=== PATIENT | male | born 1955 | race Caucasian/White ===

== ENCOUNTER 2019-12-27 00:36 | Inpatient (IN) | payer OTHER, MEDICARE, SELFPAY ==
[2019-12-27] VITALS (51 sets, daily range): BP systolic 77–222; BP diastolic 59–124; PULSE 59–98; RESP 3–33; TEMP 36.4–37.3; O2SAT 79–99; BMI 30.9
--- NOTE | 2019-12-27 00:48 | ECG_ITS ---
[facility] Test Date: 2019-12-27 Pat Name: Kenji Kaur Department: Room: Gender: Male Financial Cost Analyst: : 1955 Requested By: Manolo Pacheco Order Number: [id number] Lalit MD: Asa Graves M.D. Measurements Intervals [place] Rate: 61 P: AL: -1 QRS: 7 QRSD: 106 T: 42 QT: 439 QTc: 446 Interpretive Statements ATRIAL FIBRILLATION SEPTAL MYOCARDIAL INFARCTION , OF INDETERMINATE AGE [40+ ms Q WAVE IN V1/V2] No previous ECG available for comparison Electronically Signed On 12-27-2019 19:21:05 CDT by Asa Graves M.D. [id number]
--- NOTE | 2019-12-27 00:48 | XR_ITS ---
WS: [id number] EXAM: AP CHEST: PORTABLE UPRIGHT DATE OF EXAM: 12/27/2019, 0129 hours COMPARISON: Chest x-ray from 04/11/2019 HISTORY: Patient is 64 years old with hypertension. History of prostate cancer. Complaining of shortness of br eath. FINDINGS: The cardiac silhouette is normal in size. The mediastinal contours are similar. Calcified plaque i n the aorta. This suggests hypertension.. The pulmonary vascularity is normal. The lungs are clear of infiltrate. There is no effusion or pneumothorax. No acute bony abnormality is seen. XR/XR chest 1V portable [id number] IMPRESSION: No acute pulmonary disease.
--- NOTE | 2019-12-27 00:51 | PC.NURSE ---
EKG done at 0050 and shown to ER doctor
[2019-12-27 01:24] LABS: Basophils # 0.1 10^3/uL (0.0-0.1); Basophils % 0.6 %; Eosinophils # 0.2 10^3/uL (0.0-0.8); Eosinophils % 1.4 %; Hematocrit 46.1 % (42.0-52.0); Hemoglobin 14.8 g/dL (11.7-16.6); Lymphocytes # 4.4 10^3/uL (0.8-4.8); Lymphocytes % 28.4 %; Mean Corpuscular HGB Conc 32.1 g/dL (30.0-36.0); Mean Corpuscular Hemoglobin 28.1 pg (28.0-34.0); Mean Corpuscular Volume 87.5 fL (80-94); Mean Platelet Volume 10.7 fL (7.4-10.4); Monocytes % 6.1 %; Neutrophils # 9.74 10^3/uL (1.8-7.7); Neutrophils % 62.6 %; Nucleated Red Blood Cells % 0 %; Platelet Count 280 10^3/cmm (130-400); Red Blood Count 5.27 10^6/uL (4.1-5.3); Red Cell Distribution Width 13.6 % (12.1-15.1); White Blood Count 15.6 10^3/uL (4.0-10.0)
[2019-12-27 01:29] LABS: INR 0.97 (0.8-1.2)
[2019-12-27 01:30] LABS: Partial Thromboplastin Time 33.8 SECONDS (23.9-36.7)
[2019-12-27 01:38] LABS: Troponin(5th) Baseline 10 ng/L (0-15)
--- NOTE | 2019-12-27 01:43 | PC.NURSE ---
patient c/o inability to uriante, 16 Fr Foely placed on arrival 1600mL out, clamped at 1000ml to avoid bladder spasm then let rest out
[2019-12-27 01:46] LABS: Alanine Aminotransferase 29 U/L (0-41); Albumin Level 4.2 g/dL (3.5-5.2); Alkaline Phosphatase 100 IU/L (40-130); Aspartate Amino Transferase 21 U/L (0-40); Blood Urea Nitrogen 13 mg/dL (8-23); Calcium 8.7 mg/dL (8.5-10.5); Carbon Dioxide 22 mmol/L (22-29); Chloride 103 mmol/L (98-107); Creatine Phosphokinase 86 U/L (39-308); Globulin 3.3 g/dL (1.3-4.6); Glomerular Filtration Rate 112.8 mL/min (90-130); Glucose 201 mg/dL (65-115); NT Pro B Type Natriuretic Pept 106 pg/mL (0-125); Osmolality Calculated 288 mOsm/kg (285-295); Sodium 138 mmol/L (136-145); Total Bilirubin 0.2 mg/dL (0.15-1.2); Total Protein 7.5 g/dL (6.6-8.7)
[2019-12-27] MEDS: enalaprilat 1.25 mg/mL Inj IVP (01:46)
[2019-12-27] MEDS: nitroglycerin 1 gm/inch oint Pkt 2 INCH TOPICAL (01:46)
[2019-12-27 01:47] LABS: Anion Gap 16.7 (5-19); Potassium 3.7 mmol/L (3.5-5.1)
[2019-12-27 01:54] LABS: Add Urine Microscopic? YES; Bilirubin Urine Neg (NEGATIVE); Blood Urine 2+ (Negative); Glucose Urine UA 1+ (Normal); Ketones Urine Negative (Negative); Leukocyte Esterase Urine Negative (Negative); Nitrate Urine Negative (Negative); Protein Urine 2+ (Negative); Urine Appearance Clear (CLEAR); Urine Color Straw (Yellow); Urobilinogen Urine Norm (Negative); pH Urine 8 (5-7)
[2019-12-27 01:55] LABS: Sulfosalicylic Acid Urine Positive (Negative)
[2019-12-27 01:56] LABS: Add Urine Culture? No; Bacteria Urine TRACE; RBC Urine 0-4 /hpf (0-2); Squamous Epithelial Cell Urine 0-4 (0-5); WBC Urine 0-4 /hpf (0-5)
--- NOTE | 2019-12-27 02:11 | W.ED.ARRPALP ---
HPI - Arrhythmia/Palpitations General: Chief Complaint: Arrhythmia/Palpitations Stated Complaint: NEW ONSET AFIB Time Seen by Provider: 12/27/19 00:42 History of Present Illness: HPI narrative: 64-year-old male presents from home. EMS was called for palpitations, acute onset of nausea, diaphoresis, and dizziness. There was mild chest discomfort involved as well. The patient's had a slight cough with some sputum production. No fever. Duration: intermittent Severity: moderate Associated symptoms: Deny anxiety, nausea or vomiting Review of Systems Const: Denies: fever(s) or chills Eyes: Denies: change in vision or blurry vision ENMT: Denies: swelling of lips/tongue, change in hearing, epistaxis or sinus pain Card: Reports: chest pain, palpitations, irregular heart rhythm and dyspnea on exertion Resp: Reports: dyspnea and productive cough; Denies: wheezing GI: Denies: abdominal pain, nausea, vomiting, hematochezia or melena : Reports: difficulty urinating and urinary urgency; Denies: dysuria, urinary frequency or hematuria Musc: Denies: neck pain, back pain, joint redness or joint warmth Skin/Breast: Denies: rash, pruritus or erythema Neuro: Denies: headache(s), dizziness, vertigo, confusion or seizure-like activity Psych: Denies: anxiety, visual hallucinations or auditory hallucinations [facility] ED PFSH: Medical History (Updated 12/27/19 @ 05:22 by Manolo Zarate DO) Amputation leg, bilat Bitten by shark Coronary artery disease Hypertension Peripheral vascular disease Aorto femoral bypass on left Femorofemoral bypass on the right Surgical History (Updated 12/27/19 @ 04:37 by Radha Nelson MD) H/O aorto-femoral bypass Stented coronary artery Family History (Updated 12/27/19 @ 04:37 by Radha Nelson MD) Other CAD (coronary artery disease) Hypertension Social History (Updated 12/27/19 @ 04:39 by Radha Nelson MD) Smoking and tobacco status: current every day smoker Substance/Drug Use: never Physical Exam Const: GENERAL APPEARANCE: ill appearing ORIENTATION/CONSCIOUSNESS: Yes oriented to person, Yes oriented to place and Yes oriented to time HENMT: COMMON NORMALS: normocephalic, external ears normal and Normal external nose present HEAD & SCALP: normocephalic FACE & SINUS: normal facial exam NOSE: Normal external nose present; nasal discharge EXTERNAL EAR: Yes external ears normal Eye: COMMON NORMALS: Equal, round and reactive pupils present, EOMs intact bilaterally and conjunctivae normal EYELID: eyelids normal CONJUNCTIVA: Yes conjunctivae normal PUPIL: Yes Equal, round and reactive pupils present Neck/C-Spine: COMMON NORMALS: full ROM GENERAL: No tracheal deviation CERVICAL SPINE: Yes normal cervical lordosis and No Cervical spine tenderness Chest: COMMONS NORMALS: normal inspection of the chest CHEST: No tenderness Resp: COMMON NORMALS: clear to auscultation bilaterally EFFORT & INSPECTION: No tachypneic, No respiratory distress, No retractions, No uses accessory muscles and No tracheal deviation AUSCULTATION: clear to auscultation bilaterally, no rhonchi, no wheezes and lung sounds not diminished Cardio: COMMON NORMALS: regular rate RATE: regular rate RHYTHM: abnormal rhythm irregularly irregular HEART SOUNDS: no murmurs PERIPHERAL PULSES: radial pulses present GI: INSPECTION: No abdominal distension AUSCULTATION: No Hyperactive bowel sounds present and No Hypoactive bowel sounds present PALPATION: No Guarding due to palpation present (GI) and No Rigid due to palpation PERCUSSION: no dullness to percussion and no tympanic to percussion Neuro: SENSORIUM/ORIENTATION: Yes oriented to person, Yes oriented to place and Yes oriented to time Psych: COMMON NORMALS: mental status grossly normal Skin: COMMON NORMALS: no rashes or lesions noted GENERAL SKIN EXAM: no rashes or lesions noted Course Vital Signs: Vital signs: Vital Signs Temperature 97.6 F 12/27/19 00:42 Pulse Rate 64 12/27/19 04:43 Respiratory Rate 16 12/27/19 04:43 Blood Pressure 166/75 12/27/19 04:43 Pulse Oximetry 98 12/27/19 04:43 MDM - Arrhythmia/Palpitations MDM Narrative: Medical decision making narrative: 64-year-old male presents hypertensive, and a new onset atrial fibrillation by history, with a white blood cell count of 15. Troponin was not positive. He has a cough with some sputum production. Chest x-ray is essentially negative. CT angios of the chest is pending. He is hypoxic. Lab Data: Labs: Lab Results 12/27/19 12/27/19 12/27/19 Range/Units 01:06 01:06 01:06 WBC 15.6 H (4.0-10.0) 10^3/ uL RBC 5.27 (4.1-5.3) 10^6/u L Hgb 14.8 (11.7-16.6) g/dL Hct 46.1 (42.0-52.0) % MCV 87.5 (80-94) fL MCH 28.1 (28.0-34.0) pg MCHC 32.1 (30.0-36.0) g/dL RDW 13.6 (12.1-15.1) % Plt Count 280 (130-400) 10^3/c mm MPV 10.7 H (7.4-10.4) fL Neut % (Auto) 62.6 % Lymph % (Auto) 28.4 % [place] % (Auto) 6.1 % Eos % (Auto) 1.4 % Baso % (Auto) 0.6 % Neut # (Auto) 9.74 H (1.8-7.7) 10^3/u L Lymph # (Auto) 4.4 (0.8-4.8) 10^3/u L [place] # (Auto) 1.0 H (0.2-0.9) 10^3/u L Eos # (Auto) 0.2 (0.0-0.8) 10^3/u L Baso # (Auto) 0.1 (0.0-0.1) 10^3/u L Nucleated RBC % (a uto) 0 % Nucleated RBCs # 0.0 /100WBC PT 13.20 (12.1-14.9) SECO NDS INR 0.97 (0.8-1.2) APTT 33.8 (23.9-36.7) SECO NDS Sodium 138 (136-145) mmol/L Potassium 3.7 (3.5-5.1) mmol/L Chloride 103 (98-107) mmol/L Carbon Dioxide 22 (22-29) mmol/L Anion Gap 16.7 (5-19) BUN 13 (8-23) mg/dL Creatinine 0.7 (0.7-1.2) mg/dL GFR Calculation 112.8 (90-130) mL/min Glucose 201 H (65-115) mg/dL Calculated Osmolal ity 288 (285-295) mOsm/k g Calcium 8.7 (8.5-10.5) mg/dL Total Bilirubin 0.2 (0.15-1.2) mg/dL AST 21 (0-40) U/L ALT 29 (0-41) U/L Alkaline Phosphata se 100 (40-130) IU/L Creatine Kinase 86 (39-308) U/L Troponin T Baselin e (0-15) ng/L Troponin T 120 Min pilot point (0-15) ng/L Delta Troponin T (0-10) ABS# NT-Pro-B Natriuret Pep 106 (0-125) pg/mL Total Protein 7.5 (6.6-8.7) g/dL Albumin 4.2 (3.5-5.2) g/dL Globulin 3.3 (1.3-4.6) g/dL Urine Color (Yellow) Urine Appearance (CLEAR) Urine pH (5-7) Ur Specific Gravit y (1.005-1.030) Urine Protein (Negative) Urine Glucose (UA) (Normal) Urine Ketones (Negative) Urine Blood (Negative) Urine Nitrate (Negative) Urine Bilirubin (NEGATIVE) Prot Sulfosalicyli c Acd (Negative) Urine Urobilinogen (Negative) mg/dL Ur Leukocyte Kimberly ase (Negative) Urine RBC (0-2) /hpf Urine WBC (0-5) /hpf Ur Squamous Epith Cells (0-5) Amorphous Sediment Urine Bacteria (NONE) Urine Opiates Scre en (Negative) ng/mL Ur Barbiturates Sc reen (Negative) ng/mL Ur Phencyclidine S crn (Negative) ng/mL Ur Amphetamines Sc reen (Negative) ng/mL U Benzodiazepines Scrn (Negative) ng/mL Urine Cocaine Scre en (Negative) ng/mL U Marijuana (THC) Screen (Negative) ng/mL 12/27/19 12/27/19 12/27/19 Range/Units 01:06 01:20 01:20 WBC (4.0-10.0) 10^3/ uL RBC (4.1-5.3) 10^6/u L Hgb (11.7-16.6) g/dL Hct (42.0-52.0) % MCV (80-94) fL MCH (28.0-34.0) pg MCHC (30.0-36.0) g/dL RDW (12.1-15.1) % Plt Count (130-400) 10^3/c mm MPV (7.4-10.4) fL Neut % (Auto) % Lymph % (Auto) % [place] % (Auto) % Eos % (Auto) % Baso % (Auto) % Neut # (Auto) (1.8-7.7) 10^3/u L Lymph # (Auto) (0.8-4.8) 10^3/u L [place] # (Auto) (0.2-0.9) 10^3/u L Eos # (Auto) (0.0-0.8) 10^3/u L Baso # (Auto) (0.0-0.1) 10^3/u L Nucleated RBC % (a uto) % Nucleated RBCs # /100WBC PT (12.1-14.9) SECO NDS INR (0.8-1.2) APTT (23.9-36.7) SECO NDS Sodium (136-145) mmol/L Potassium (3.5-5.1) mmol/L Chloride (98-107) mmol/L Carbon Dioxide (22-29) mmol/L Anion Gap (5-19) BUN (8-23) mg/dL Creatinine (0.7-1.2) mg/dL GFR Calculation (90-130) mL/min Glucose (65-115) mg/dL Calculated Osmolal ity (285-295) mOsm/k g Calcium (8.5-10.5) mg/dL Total Bilirubin (0.15-1.2) mg/dL AST (0-40) U/L ALT (0-41) U/L Alkaline Phosphata se (40-130) IU/L Creatine Kinase (39-308) U/L Troponin T Baselin e 10 (0-15) ng/L Troponin T 120 Min pilot point (0-15) ng/L Delta Troponin T (0-10) ABS# NT-Pro-B Natriuret Pep (0-125) pg/mL Total Protein (6.6-8.7) g/dL Albumin (3.5-5.2) g/dL Globulin (1.3-4.6) g/dL Urine Color Straw (Yellow) Urine Appearance Clear (CLEAR) Urine pH 8 H (5-7) Ur Specific Gravit y 1.010 (1.005-1.030) Urine Protein 2+ H (Negative) Urine Glucose (UA) 1+ (Normal) Urine Ketones Negative (Negative) Urine Blood 2+ H (Negative) Urine Nitrate Negative (Negative) Urine Bilirubin Neg (NEGATIVE) Prot Sulfosalicyli c Acd Positive (Negative) Urine Urobilinogen Norm (Negative) mg/dL Ur Leukocyte Kimberly ase Negative (Negative) Urine RBC 0-4 H (0-2) /hpf Urine WBC 0-4 H (0-5) /hpf Ur Squamous Epith Cells 0-4 H (0-5) Amorphous Sediment Not Reportable Urine Bacteria Trace (NONE) Urine Opiates Scre en Negative (Negative) ng/mL Ur Barbiturates Sc reen Negative (Negative) ng/mL Ur Phencyclidine S crn Negative (Negative) ng/mL Ur Amphetamines Sc reen Negative (Negative) ng/mL U Benzodiazepines Scrn Negative (Negative) ng/mL Urine Cocaine Scre en Negative (Negative) ng/mL U Marijuana (THC) Screen Positive H (Negative) ng/mL 12/27/19 Range/Units 02:57 WBC (4.0-10.0) 10^3/ uL RBC (4.1-5.3) 10^6/u L Hgb (11.7-16.6) g/dL Hct (42.0-52.0) % MCV (80-94) fL MCH (28.0-34.0) pg MCHC (30.0-36.0) g/dL RDW (12.1-15.1) % Plt Count (130-400) 10^3/c mm MPV (7.4-10.4) fL Neut % (Auto) % Lymph % (Auto) % [place] % (Auto) % Eos % (Auto) % Baso % (Auto) % Neut # (Auto) (1.8-7.7) 10^3/u L Lymph # (Auto) (0.8-4.8) 10^3/u L [place] # (Auto) (0.2-0.9) 10^3/u L Eos # (Auto) (0.0-0.8) 10^3/u L Baso # (Auto) (0.0-0.1) 10^3/u L Nucleated RBC % (a uto) % Nucleated RBCs # /100WBC PT (12.1-14.9) SECO NDS INR (0.8-1.2) APTT (23.9-36.7) SECO NDS Sodium (136-145) mmol/L Potassium (3.5-5.1) mmol/L Chloride (98-107) mmol/L Carbon Dioxide (22-29) mmol/L Anion Gap (5-19) BUN (8-23) mg/dL Creatinine (0.7-1.2) mg/dL GFR Calculation (90-130) mL/min Glucose (65-115) mg/dL Calculated Osmolal ity (285-295) mOsm/k g Calcium (8.5-10.5) mg/dL Total Bilirubin (0.15-1.2) mg/dL AST (0-40) U/L ALT (0-41) U/L Alkaline Phosphata se (40-130) IU/L Creatine Kinase (39-308) U/L Troponin T Baselin e (0-15) ng/L Troponin T 120 Min pilot point 10.22 (0-15) ng/L Delta Troponin T 0.22 (0-10) ABS# NT-Pro-B Natriuret Pep (0-125) pg/mL Total Protein (6.6-8.7) g/dL Albumin (3.5-5.2) g/dL Globulin (1.3-4.6) g/dL Urine Color (Yellow) Urine Appearance (CLEAR) Urine pH (5-7) Ur Specific Gravit y (1.005-1.030) Urine Protein (Negative) Urine Glucose (UA) (Normal) Urine Ketones (Negative) Urine Blood (Negative) Urine Nitrate (Negative) Urine Bilirubin (NEGATIVE) Prot Sulfosalicyli c Acd (Negative) Urine Urobilinogen (Negative) mg/dL Ur Leukocyte Kimberly ase (Negative) Urine RBC (0-2) /hpf Urine WBC (0-5) /hpf Ur Squamous Epith Cells (0-5) Amorphous Sediment Urine Bacteria (NONE) Urine Opiates Scre en (Negative) ng/mL Ur Barbiturates Sc reen (Negative) ng/mL Ur Phencyclidine S crn (Negative) ng/mL Ur Amphetamines Sc reen (Negative) ng/mL U Benzodiazepines Scrn (Negative) ng/mL Urine Cocaine Scre en (Negative) ng/mL U Marijuana (THC) Screen (Negative) ng/mL Discharge Plan Discharge Patient Disposition: Placed in Observation Clinical Impression: Atrial fibrillation Qualifiers: Atrial fibrillation type: persistent (not longstanding) Qualified Code(s): I48.19 - Other persistent atrial fibrillation Condition: Stable Referrals: Jared Jacques MD [Primary Care Provider] - Binh Jacques [Family Provider] - Coding Level of Care Code ED Shovel Log Loader Operator for Chg Fwd Exam Comprehensive
--- NOTE | 2019-12-27 02:48 | ECG_ITS ---
[facility] Test Date: 2019-12-27 Pat Name: Kenji Kaur Department: Room: Gender: Male Title Examiner: : 1955 Requested By: Manolo Pacheco Order Number: [id number] Lalit MD: Asa Graves M.D. Measurements Intervals [place] Rate: 71 P: [place]: -1 QRS: 19 QRSD: 104 T: 43 QT: 404 QTc: 439 Interpretive Statements ATRIAL FIBRILLATION WITH ABERRANT CONDUCTION OR VENTRICULAR PREMATURE COMPLEXES SEPTAL MYOCARDIAL INFARCTION , OF INDETERMINATE AGE [40+ ms Q WAVE IN V1/V2] No previous ECG available for comparison Electronically Signed On 12-29-2019 12:14:31 CDT by Asa Graves M.D. [email or web address]
[2019-12-27] MEDS: ipratropium-albuterol 3 mL Neb INHALATION (03:01)
--- NOTE | 2019-12-27 03:05 | PC.NURSE ---
EKG done at 0303 and shown to ER doctor
[2019-12-27] MEDS: labetalol 5 mg/mL SDV 20mL 10 MG IVP ×2 (03:25→08:10)
--- NOTE | 2019-12-27 03:38 | PC.NURSE ---
2000cc drained from velasquez
--- NOTE | 2019-12-27 04:33 | PM.HP ---
Providers/Chief Complaint Primary Care Provider: Jared Jacques MD Chief Complaint: NEW ONSET AFIB History of Present Illness Kenji Kaur is a 64 year old male who has extensive history of peripheral vascular disease status post [id number] amputation of bilateral lower extremities, prostate cancer, hypertension, hypertension, came in with chief complaint of dizziness and vomiting. Patient is stating that today he started having dizziness which he is describing as surroundings are spinning , it made him very uncomfortable, he experienced 3-4 episodes of vomiting without any diarrhea, abdominal pain, dysuria, fever, chills. This lightheadedness was associated with cramps in his chest. He uses wheelchair for ambulation, endorsing worsening of symptoms with change in his position in his bed. He smoking 3 to 4 cigarettes a day, lives alone and called his daughter for worsening of his symptoms today. Recently had a cataract surgery on Sunday. Does not carry previous history of A. fib. Patient is stating that since beginning of his symptoms he is not able to keep anything down. Diagnosis in the ER revealed hypertensive urgency systolic blood pressure 213, diastolic 108 mmHg, new onset A. fib RVR, after giving IV labetalol(10 mg IV push) his heart rate has been consistently between 60-70 but irregular, he has not converted to sinus rhythm, I have requested CTA chest to rule out PE. Gratis-Hallpike maneuver positive in the ER done by myself with fast movement of nystagmus towards the right ear. Chest x-ray shows mild vascular congestion, on placement of Curiel catheter 1800 mL urine drained Review of Systems Const: Reports: chills, body aches, change in appetite and fatigue; Denies: fever(s) Eyes: Denies: change in vision ENMT: Denies: throat pain Card: Reports: chest pain, palpitations and irregular heart rhythm; Denies: edema, swelling of feet/ankles, syncope, pre-syncope, dyspnea on exertion or orthopnea Resp: Denies: dyspnea GI: Reports: nausea and vomiting; Denies: abdominal pain, diarrhea or constipation : Denies: flank pain Musc: Denies: neck pain Skin/Breast: Denies: rash Neuro: Reports: headache(s) Psych: Denies: anxiety Endo: Denies: polyuria Damion/Lymph: Denies: easy bruising All/Imm: Denies: urticaria Medications/Allergies Allergies Allergy/AdvReac Type Severity Reaction Status Date / Time No Known Allergies Allergy Verified 12/27/19 00:57 PFSH Acute PFSH: Medical History (Updated 12/27/19 @ 05:44 by Radha Nelson MD) Amputation leg, bilat Atrial fibrillation Bitten by shark Left lower extremity 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 Coronary artery disease Hypertension Peripheral vascular disease Aorto femoral bypass on left Femorofemoral bypass on the right Surgical History H/O aorto-femoral bypass Stented coronary artery Family History Other CAD (coronary artery disease) Hypertension Social History (Updated 12/27/19 @ 05:44 by Radha Nelson MD) Smoking and tobacco status: current every day smoker cigarettes [ Other cigarette details: 3 to 4 cigarettes a day ] Substance/Drug Use: current Substance/Drug use type: Marijuana Lives independently: Yes Vitals/I&O/Wt Last Vital Signs Temp 97.6 F 12/27/19 00:42 Pulse 78 12/27/19 03:06 Resp 20 H 12/27/19 03:06 BP 179/103 12/27/19 02:48 Pulse Ox 79 L 12/27/19 03:06 Weight last 48 hrs Weight 49.895 kg Physical Exam Narrative: EXAM NARRATIVE: Unkempt appearance Patient is laying in his bed with eyes closed, I did Gen-Hallpike maneuver which was positive with fast component of nystagmus towards right ear Patient is very symptomatic with change of his head position in the his bed S1-S2 variable, no fluid overloaded state Abdomen soft nontender nondistended bowel sound present Lungs shows mild crackles, without respiratory distress Neurologically able to follow commands awake alert oriented x3 GCS 15 Irritable mood because of vertigo No active skin rash Bilateral above-knee amputation Curiel catheter placed drained 1800 mL of urine Data : 12/27/19 01:06 12/27/19 01:06 A&P Assessment and plan (1) BPPV (benign paroxysmal positional vertigo): Status: Acute (2) New onset atrial fibrillation: Status: Acute (3) Dizziness: Status: Acute (4) Marijuana abuse: Status: Acute (5) Vomiting: Status: Acute Additional A&P Information New onset A. fib with acute RVR Responded very well to labetalol 10 mg IV push Rule out PE, check TSH Previous records revealed use of rivaroxaban 20 mg daily, asked his daughter to bring all of his medications Added metoprolol 12.5 mg twice a day Chads vasc 4 Hypertensive urgency Responded well to nitroglycerin paste and labetalol 10 mg IV push Currently systolic blood pressure is in 160 diastolic 75 mmhg No active chest pain, shortness of breath or confusion I have added lisinopril 10 mg on daily basis along metoprolol 12.5 mg twice a day Dizziness secondary to BPPV Positive Gen-Hallpike maneuver with fast nystagmus component to right side Physical therapy to do Hosea's maneuver Start meclizine Vomiting multifactorial secondary to BPPV and marijuana use Prostate cancer: Urine retention, placement of Curiel catheter drained 1800 mL of urine Continue finasteride and alpha blockers Full code Cardiac diet DVT prophylaxis not needed currently on rivaroxaban 20 mg daily Attestations Medical Necessity Statement*: Anticipating discharge in less than 48 hours currently need medication for A. fib RVR, hypertensive urgency, and treatment maneuvers for BPPV Time Spent in Patient Care: (>than 50% of time spent in counselling and/or direct pt care on unit). 35mins Coding Level of Care Code Acute Bench Press Operator for Chg Fwd Diagnoses BPPV (benign paroxysmal positional vertigo) H81.10 New onset atrial fibrillation I48.91 Dizziness R42 Marijuana abuse F12.10 Vomiting R11.10
--- NOTE | 2019-12-27 04:39 | CTR_ITS ---
PROCEDURE INFORMATION: Exam: CT Angiography Chest With Contrast Exam date and time: 12/27/2019 5:09 AM Age: 64 years old Clinical indication: Other: Hypoxia; Prior surgery; Surgery type: Stent TECHNIQUE: Imaging protocol: Computed tomographic angiography of the chest with intravenous contrast. 3D rendering (Not supervised by radiologist): MIP and/or 3D reconstructed images were created by the technologist. Radiation optimization: All CT scans at this facility use at least one of these dose optimization techniques: automated exposure control; mA and/or kV adjustment per patient size (includes targeted exams where dose is matched to clinical indication); or iterative reconstruction. Contrast material: OMNI 350; Contrast volume: 95 ml; Contrast route: INTRAVENOUS (IV); COMPARISON: CR XR chest 1V portable [id number] 12/27/2019 1:24 AM RADIATION DOSE METRICS: Total DLP (mGy-cm): 713.56 FINDINGS: Pulmonary arteries: No visualized acute pulmonary embolus. Aorta: Abnormal appearance of the lumen of distal thoracic aorta with differential density has developed since the prior CTA of the abdomen dated 03/25/2019. There is suboptimal contrast intensity for detailed assessment. The differential could include prominent development of eccentric soft atherosclerotic plaque, thromboembolism or dissection. The lower images suggest significant diminutive contrast diameter of the lumen of the upper abdominal aorta at the level of the celiac trunk measuring 1.6 cm with a prominent eccentric non lumen contrast diameter of 1.1 cm. Partial visualization of abdominal stent on the lower images. There is no definite contrast opacification within the visualized portion of the lumen of the abdominal aorta stent which originates near or slightly caudad to the origin of the renal arteries bilaterally. Diameter of ascending thoracic aorta 3.6 cm. Diameter of descending thoracic aorta 3.3 cm. Lungs: Right lung calcified granuloma. Pleural space: Areas of pleural parenchymal scarring. Dependent atelectasis posterior lungs. Few pleural based nodular configured densities right posterolateral mid lung probably reflecting scarring. Heart: Calcification distribution of coronary arteries. Normal right to left ventricular ratio. Lymph nodes: Small mediastinal lymph nodes. Subcarinal calcified granulomata and right hilar calcified lymph nodes. Liver: Liver and spleen granulomatous calcifications. Bones/joints: Degenerative change of the spine. Wedge configured midthoracic vertebrae. Degenerative change throughout the spine. Soft tissues: Unremarkable. Other findings: Left axillary vascular graft without appreciable contrast opacification suggesting thrombosis acutely or chronically and was suggested on the prior CT a study of 03/25/2019. CT/CT angio chest PE protcl [id number] IMPRESSION: 1. Prominent abnormal eccentric hypoattenuating differential density of a prominent portion of the lumen of distal thoracic aorta and abdominal aorta with possible demonstration of non vascular flow within the intraluminal stent. This finding is newly developed compared to the prior CT a 03/25/2019. There is marked limited assessment of the aorta due to opacification of the pulmonary arteries for pulmonary embolus protocol. The underlying condition could include intra aortic thrombosis or thromboembolic involvement of the distal thoracic and abdominal aorta with probable complete occlusion of the abdominal aortic stent. Other underlying condition could include vascular dissection and delineation and detailed assessment is limited. CTA of thoracic and abdominal aorta is recommended. 2. No definite visualization of pulmonary embolus. 3. Areas of pleural parenchymal scarring with areas of pleural nodular configuration in the right posterolateral mid lung probably scarring rather than pleural based nodules. 4. Granulomatous calcifications within the mediastinum and lungs. 5. Likely thrombosis of left axillary vascular graft within the left chest wall was reported to have thrombosed appearance on prior CTA 03/25/2019. Radiation Dose CTDIVOL = (mGy): DLP = 713.56 (mGy-cm)
[2019-12-27 04:59] LABS: Troponin 5 2HR 10.22 ng/L (0-15); Troponin 5 2HR Delta 0.22 ABS# (0-10)
[2019-12-27 05:02] LABS: Amphetamines Screen Urine Negative (Negative); Barbiturates Screen Urine Negative (Negative); Benzodiazepines Screen Urine Negative (Negative); Cocaine Screen Urine Negative (Negative); Opiate Screen Urine Negative (Negative); PCP Screen Urine Negative (Negative); THC Screen Urine Positive (Negative)
[2019-12-27] MEDS: iohexol 350 mg/mL 100 mL Btl IV (05:42)
--- NOTE | 2019-12-27 06:56 | CT_ITS ---
WS: [id number] EXAM: CTA OF THE THORACIC AND ABDOMINAL AORTA DATE OF EXAMINATION: 12/27/2019, 1210 hours COMPARISON: CT pulmonary angiogram from 0526 hours on the same date. Prior CTA with runoff from 03/25/2018. HISTORY: 64 years old with a history of prostate cancer. Persistent nausea and vomiting. Bilateral above-the-k nee amputation patient. Abnormal CT pulmonary angiogram showing thrombus within the abdominal aorta. Assess for extent of thrombus and possible dissection. TECHNIQUE: Transaxial computed tomography images obtained through the majority of the chest, abdomen and pelvis utilizing 95 mL of Visipaque IV contrast with images acquired in the portal and delayed phase. Images viewed in multiple windows with reconstructions. DLP: 1236.[address] scans at [facility] use at least one of these dose optimization techniques: automat ed exposure control; mA and/or kV adjustment per patient size (includes targeted exams where dose is matched to clinical indication); or iterative reconstruction. FINDINGS: The examination begins above the level of the aortic arch. The innominate artery, left common carotid artery, subclavian artery are normal in appearance at their origins. The left vertebral artery on th e left arises from the aortic arch. The ascending aorta is normal in caliber and opacifies normally. There are findings of a tricuspid aortic valve. No aneurysmal dilatation or dissection of the ascendi ng aorta seen. The descending thoracic aorta shows a small amount of peripheral wall thickening and c alcified plaque. Just above the level of the diaphragm there is slight increase in amount of wall ovidio que from the 8:00-1:00 position. As the examination extends inferiorly the amount of plaque burden pr ogresses to involve around two thirds of the main aortic vascular lumen. This is new since 03/25/2019 examination and suggest thrombus has developed at some point in time in this region. Multiple verteb ral arteries are opacified off of the aorta. Celiac trunk and branches are normally opacified. Superi or mesenteric artery origin is normal in appearance and opacification without evidence of occlusion. There is some degree of plaque within the superior mesenteric artery noted but was also seen on the 2018 exam. Both renal arteries are opacified and are of normal caliber. There is an acute occlusion of the aorti c lumen at this level. Since the March 2019 examination an endovascular graft has been placed with a double barrel graft extending into both limbs of the iliac arteries. The [place] abdominal aorta is occluded and extends inferiorly through the common iliac arteries, external iliac arteries and into the groin regions. Proximal superficial femoral arteries are also occluded. Stenting from the right c ommon carotid artery into the distal external iliac artery on the right is noted. Its is also occlude d. There are findings of a femorofemoral jump graft noted on this examination which also shows no nimesh dence for opacification. On the left-hand side it appears to end blindly in the subcutaneous fat. On the right appears to be anastomosis to a small caliber arterial vessel. The right and left proximal s uperficial femoral arteries are also occluded. Inferior mammary arteries extending down into the hypogastric arteries which appears to show collater al perfusion into the deep pelvis vessels. I presume the inferior mesenteric artery is also being per fused via collaterals from the groin as well as off the superior mesenteric artery and vertebral marilyn ry collaterals. There are no findings of ischemic gut demonstrated. Left-sided axillary femoral jump graft is in place but is occluded. Was also noted to be occluded in the March 2019 exam. Curiel decompresses the bladder. Prostate is enlarged. Chronic lung changes are identified. There is some minimal patchy infiltrate in the outer aspect of t he right mid chest region not seen at the examination from 0528 hours same date therefore most consis tent with atelectasis. Some minimal linear atelectasis in the left lower lobe. No mediastinal mass or adenopathy is seen. Heart size is normal. Liver attenuation is normal. Multiple calcified granulomat ous changes. Gallbladder is full of vicariously excreted contrast. No biliary dilatation is seen. Vj nt opacification of the pulmonary vein is seen. Spleen, pancreas, adrenals are normal in appearance. Both kidneys enhance without evidence of solid m ass lesion. Small low-density lesions are demonstrated in both kidneys most consistent with cysts. Nikita th kidneys excrete without obstructive uropathy. Stomach is full of fluid otherwise unremarkable. Small bowel is normal in caliber. There are no findi ngs of pneumatosis demonstrated. Colon is moderately full of stool otherwise unremarkable. No colonic distention is seen. No bowel obstruction, free air, free fluid or inflammatory process is noted. Scattered changes of arthritis are seen in the spine. Underlying spinal canal stenosis felt to be pre sent L4-5 level. No umbilical or groin hernia identified. Changes of arthritis fairly prominent right hip joint. CT/CT angio abdomen pelvis [id number] IMPRESSION: Findings of interval placement of an endovascular stent from the level of the b elow the renal arteries into both common carotid arteries and extending on the right to the level of the common femoral artery. There is occlusion of the abdo lenny aorta at the top of the stent which extends into the iliac vessels with o cclusion of both superficial femoral arteries at their origin. Left axillary femoral jump graft is occluded but was also occluded on the 2018 exam. Plaque within the superior mesenteric artery but was also present in March 08. Normal caliber to the celiac trunk and its major branches. Normal perfusion to the superior mesenteric artery and the mesenteric arcade. The inferior mesenteric artery off of the aorta is not seen. No findings of isc hemic gut is seen. I presume the bowel distribution for the inferior mesenteric artery is being perfused via collaterals. Vicarious excretion of contrast within the gallbladder lumen. No findings of obstructive uropathy. No findings of ischemic or gut. No bowel obstruction seen. Imaging results called to the cardiac stepdown unit with direct discussion with Dr. Gonzalez, 12/27/2019, 1258 hours.
[2019-12-27] MEDS: meclizine 25 mg tablet PO (07:04)
[2019-12-27 07:07] LABS: Thyroid Stimulating Hormone 1.31 uIU/mL (0.27-4.20)
[2019-12-27] MEDS: ondansetron 2 mg/ML SDV 2 mL 4 MG IVP ×2 (08:10→19:33)
[2019-12-27] MEDS: rivaroxaban 10 mg Tablet 20 MG PO (08:28)
[2019-12-27] MEDS: metoprolol tartrate 25 mg Tablet 12.5 MG PO (08:28)
[2019-12-27] MEDS: lisinopril 10 mg Tablet PO (08:28)
[2019-12-27] MEDS: oxybutynin 5 mg Tablet PO (08:28)
[2019-12-27] MEDS: terazosin 5 mg Capsule 10 MG PO (08:29)
--- NOTE | 2019-12-27 08:59 | PC.NURSE ---
PATIENT RETURNED FROM CT C/O NAUSEA ; PATIENT JLOOP WAS DISCONNECTED FROM IV CATHETER ; IV HAD DRIED BLOOD AROUND IT ; IV WAS RECONNECTED AND FLUSHED WITH NO ISSUES ; PATIENT WAS GIVEN IV ZOFRAN AND LABETALOL ; PATIENT STATED THAT HE FELT A LITTLE BETTER AND WOULD TRY TO TAKE HIS AM MEDS ; PATIENT IMMEDIATELY VOMITED PILLS ; PATIENT CLEANED UP AND NOTIFIED
--- NOTE | 2019-12-27 11:01 | CT_ITS ---
WS: [id number] EXAM: CT head wo con* [id number] DATE OF EXAMINATION: 12/27/2019, 1202 hours COMPARISON: None. HISTORY: 64 years old with dizziness and nystagmus. Nausea and vomiting. History of prostate cancer. TECHNIQUE: Thin slice imaging obtained through the brain. Viewed in brain, subdural and bone window with reconst ructions. DLP: 902.[address] scans at [facility] use at least one of these dose optimization techniques: automat ed exposure control; mA and/or kV adjustment per patient size (includes targeted exams where dose is matched to clinical indication); or iterative reconstruction. FINDINGS: There are minimal changes of atrophy. Gee-white differentiation is normal. There are slight changes of decreased attenuation within the white matter felt to represent sequelae from chronic small vessel white matter microangiopathic change. There is slight motion artifact. Contrast remains within the a rterial and venous structures related to a recent CT examination with IV contrast from earlier in the day. This limits evaluation for subtle hemorrhage. As presented no findings of gross hemorrhage iden tified. No hydrocephalus, mass, mass effect or abnormal extra-axial fluid collection is seen. No acut e skull abnormality is demonstrated. Extracalvarial soft tissues are unremarkable. The paranasal sinu ses are well pneumatized as visualized. CT/CT head wo con* [id number] IMPRESSION: Residual contrast seen within the vascular structures from a CT examination wit h IV contrast from earlier on the same date. Small amount of motion artifact. A s presented no acute intracranial process is identified.
--- NOTE | 2019-12-27 11:12 | PC.CHAP ---
Pastoral Care Encounter/Spiritual Assessment Type of Contact [] Declined branch customer service representative visit [] Patient/Family/Request visit [] Outpatient visit [] Follow-up visit [] Physician referral [] Code/Alert [X] Routine visit [] Staff referral [] Actively dying [] Patient sleeping [] Family support [] [] Out of room [] Palliative care [] [] Receiving care in room [] Pre-surgical visit [] Trauma [] Long length of stay [] ICU visit [] Other: Relational/Emotional Strength [X] Patient feels connected with others/family/visitors/staff [] Distress [] Loneliness/isolation [] Abandonment Spirituality of Patient [] Person of Rebeca [] Attends Confucianist of their Rebeca [X] Believes in Prayer [] Reads Bible or Uatsdin materials [] There are Spiritual issues to be addressed Laboratory Coordinator Interventions [X] Prayer [X] Active listening [X] Non-anxious presence [] Spiritual/emotional support [] Crisis/trauma care [] Spiritual counseling [] Bereavement support [] Provided bereavement packet [] Provided Bible/devotional materials [] Provided toy/stuffed animal, coloring book to patient or family member [] Provided Communion [] Anointing/Xenia [] Salvation [X] Completed spiritual assessment [] Other: Impact on Illness or Injury [] Angry [] Fearful [] Anxious [] Often cries [] Exhaustion [] Unable to work [] Unable to attend sabianist [] Unable to walk/stand [] Unable to read [] Unable to drive [] Unable to eat/drink [] Unable to sleep [] Unable to be with family [] Patient intubated [] Other: Summary: Pt is double lower leg amputee in addition to his reason for admission (AFIB). Visited with him to learn a bit of his story. He is currently living in [place] with family. Amputations were at different points in time due to an arterial disease. Although he did not identify a rebeca tradition, he welcomed prayer. Time spent with patient: 15 mins
[2019-12-27] MEDS: hyDRALAzine 20 mg/mL INJ 1 mL 10 MG IVP (11:29)
--- NOTE | 2019-12-27 11:39 | PM.PN ---
Subjective Subjective: Interval history: Overnight labs, H&P reviewed, continues to feel symptomatic. Multiple episodes of vomiting this morning, unable to tolerate po meds. Keeps eyes closed stating dizziness is worsened upon trying to fixate on objects. Unable to assess gait at this time due to B/L amputation. CTA chest this morning with hypoattenuating differential density of a prominent portion of the lumen of distal thoracic aorta and abdominal aorta with possible demonstration of non vascular flow within the intraluminal stent. This finding is newly developed compared to the prior CT a 03/25/2019. There is marked limited assessment of the aorta due to opacification of the pulmonary arteries for pulmonary embolus protocol. The underlying condition could include intra aortic thrombosis or thromboembolic involvement of the distal thoracic and abdominal aorta with probable complete occlusion of the abdominal aortic stent. Other underlying condition could include vascular dissection and delineation and detailed assessment is limited. CTA of thoracic and abdominal aorta is recommended. Medications: Reviewed: Yes Vitals/I&O/Wt Last Vital Signs Temp 97.9 F 12/27/19 10:26 Pulse 70 12/27/19 11:24 Resp 29 H 12/27/19 10:26 BP 189/80 12/27/19 10:26 Pulse Ox 98 12/27/19 11:24 Weight last 48 hrs Weight 49.895 kg Physical Exam Narrative: EXAM NARRATIVE: GEN: Awake, alert and oriented, no acute distress CVS: S1S2 N RS: CTA B/L Abd: Soft, nt/nd , bs+ RADIOLOGIC TECHNOLOGY INSTRUCTOR: no focal neuro deficits EXT: B/L AKA Data : 12/27/19 01:06 12/27/19 01:06 CTA Chest: Radiologist's impression: IMPRESSION: 1. Prominent abnormal eccentric hypoattenuating differential density of a prominent portion of the lumen of distal thoracic aorta and abdominal aorta with possible demonstration of non vascular flow within the intraluminal stent. This finding is newly developed compared to the prior CT a 03/25/2019. There is marked limited assessment of the aorta due to opacification of the pulmonary arteries for pulmonary embolus protocol. The underlying condition could include intra aortic thrombosis or thromboembolic involvement of the distal thoracic and abdominal aorta with probable complete occlusion of the abdominal aortic stent. Other underlying condition could include vascular dissection and delineation and detailed assessment is limited. CTA of thoracic and abdominal aorta is recommended. 2. No definite visualization of pulmonary embolus. 3. Areas of pleural parenchymal scarring with areas of pleural nodular configuration in the right posterolateral mid lung probably scarring rather than pleural based nodules. 4. Granulomatous calcifications within the mediastinum and lungs. 5. Likely thrombosis of left axillary vascular graft within the left chest wall was reported to have thrombosed appearance on prior CTA 03/25/2019. CT/CT angio chest PE protcl [id number] THIS REPORT CONTAINS FINDINGS THAT MAY BE CRITICAL TO PATIENT CARE. The findings were verbally communicated via telephone conference with Radha Salvador by Dr. Martinez on 12/27/2019 6:46 AM CDT. The results were acknowledged and understood. F/up CTA has been ordered -CXR: No lung infiltrates A&P Assessment and plan (1) New onset atrial fibrillation: Status: Acute (2) Dizziness: Status: Acute (3) Vomiting: Status: Acute Qualifiers: Vomiting type: unspecified Vomiting Intractability: unspecified Nausea presence: with nausea Qualified Code(s): R11.2 - Nausea with vomiting, unspecified (4) Dizziness: Status: Acute (5) Marijuana dependence: Status: Acute Additional A&P Information 64-year-old male past medical history significant for severe vasculopathy, history of severe peripheral vascular disease, B/L [id number] amputations, history of left axillary femoral bypass on the left, history of femorofemoral bypass, history of aortofemoral ipos on the right and prior multiple interventions, most recently in MAR 2019 presenting with acute ischemia of the right lower extremity. Additional history obtained from his daughter. He presented to the ER yesterday complaining of acute onset of dizziness, nausea, vomiting, diffuse pain in his chest radiating into his left arm, new-onset A. fib, all of which are reportedly new for him. When EMS picked him up his blood pressure systolic was noted to be 240, they needed to give him fentanyl and morphine to control his upper extremity and chest pain. And since presenting here, he was noted to be in A. fib, rate is currently controlled at around 70 bpm. Initial blood pressure was 213 systolic. He was given IV labetalol and the pressure reduced to 150 systolics. At this morning he was ordered for p.o. medications including metoprolol, Norvasc and lisinopril, however he vomited soon after being given these medications. # Chest pain radiating to arm Troponin series with unremarkable deltas, EKG with A fib, rate controlled, new onset for patient, no reported past history CTA chest negative for PE CTA chest with hypoattenuating differential density of a prominent portion of the lumen of distal thoracic aorta and abdominal aorta with possible demonstration of non vascular flow within the intraluminal stent. This finding is newly developed compared to the prior CT a 03/25/2019. Underlying condition could include intra aortic thrombosis or thromboembolic involvement of the distal thoracic and abdominal aorta with probable complete occlusion of the abdominal aortic stent. Differentials include vascular dissection. These findings were discussed by the overnight radiologist with Dr. Nelson and f/up CTA abdomen/pelvis ordered. Latter study was scheduled to be performed in 24 hrs from the last contrast scan per radiology protocol to avoid multiple doses of contrast and risk of SHALONDA. Above results were discussed with the patient and his daughter this morning. Since aortic dissection &/or new thrombosis of aortic stent are potentially serious events needing urgent intervention, after extensive discussion with patient and daughter, and carefully reviewing the risks/benefits, including the risk of SHALONDA and potential HD in case of renal failure, they have consented to proceed with CTA abdomen understanding the risks. Cardiology consult with Dr. Graves # new onset A fib, no past history of the same per patient and daughter He was previously on xarelto for PAD, but this was discontinued in Mar 2019 after his last right side above knee amputation. Patient states his understanding is that this was done because he had a wound vac in place until October 2019. He is unaware if there was a plan to resume this after the wound vac was discontinued. Request old records from Dr. Pleitez's office in [facility]. Most recently patient has been taking baby ASA at home Xarelto was not taken this morning due to vomiting # Hypertensive urgency Currently unable to tolerate po medications, start nitroglycerin infusion and titrate per response Hold ADELINE and ARB for now since getting multiple contrast studies. Hold ibuprofen. prn morphine for pain NS @ 50cc/hr to minimize risk of SHALONDA # severe peripheral vascular disease past history includes B/L AKA for ischemic limbs Right one 6 years ago, left one in Mar 2019, history of left axillary femoral bypass on the left, history of femorofemoral bypass, history of aortofemoral ipos on the right and prior multiple interventions. # Intractable nausea and vomiting. Unable to assess for diarrhea as patient takes loperamide at home. Concern for bowel ischemia given h/o severe vasculopathy. CTA as above Also c/o headache and dizziness, stat CT head to r/o posterior circulation CVA # marijuna use for chronic pain, uncertain if medical marijuana. may be contribtuing to nausea # Chronic LE pain : continue ropinirole for now, if LE vascular occlusion may represent anginal symptoms DVT ppx: hold for now while pending CTA abdomen results Full code Attestations Medical Necessity Statement*: change to inpatient status, needs further evaluation for possible aortic dissection vs thrombosis Coding Level of Care Code Acute Hockey Player for g Fwd Diagnoses New onset atrial fibrillation I48.91 Dizziness R42 Vomiting R11.2 Vomiting type: unspecified Vomiting Intractability: unspecified Nausea presence: with nausea Dizziness R42 Marijuana dependence F12.20
[2019-12-27] MEDS: iodixanol 320 mg/mL 100mL Btl IV (12:27)
[2019-12-27] MEDS: sodium chloride 0.9% 1,000 ML 50 ML IV (13:59)
[2019-12-27] MEDS: heparin drip 25,000 UNIT/500 ML PREMIX 5 UNIT IV (14:00)
[2019-12-27] MEDS: heparin drip 25,000 UNIT/500 ML PREMIX 14 UNIT IV (14:03)
[2019-12-27] MEDS: morphine 4 mg/mL SDV 1 mL 2 MG IVP ×3 (14:30→22:55)
[2019-12-27] MEDS: nitroglycerin drip 50 MG/250 ML PREMIX IV (14:34)
[2019-12-27 16:33] LABS: Alanine Aminotransferase 28 U/L (0-41); Albumin Level 4.3 g/dL (3.5-5.2); Alkaline Phosphatase 113 IU/L (40-130); Anion Gap 17.7 (5-19); Aspartate Amino Transferase 19 U/L (0-40); Blood Urea Nitrogen 18 mg/dL (8-23); Calcium 9.5 mg/dL (8.5-10.5); Carbon Dioxide 20 mmol/L (22-29); Chloride 101 mmol/L (98-107); Globulin 4.1 g/dL (1.3-4.6); Glomerular Filtration Rate 112.8 mL/min (90-130); Glucose 151 mg/dL (65-115); Osmolality Calculated 279 mOsm/kg (285-295); Potassium 3.7 mmol/L (3.5-5.1); Sodium 135 mmol/L (136-145); Total Bilirubin 0.3 mg/dL (0.15-1.2); Total Protein 8.4 g/dL (6.6-8.7)
[2019-12-27 16:34] LABS: Lactate (Lactic Acid level) 2.7 mmol/L (0.5-2.2)
--- NOTE | 2019-12-27 17:25 | P.CONIM_ITS ---
Providers/Reason For Consult Consulting Physican/Specialty*: Dr. Asa Graves/cardiology Reason for Consult*: Aortic endo-graft occlusion Requesting Physcian: Dr. Sarah Gonzalez Attending Physician: Sarah Gonzalez MD Primary Care Provider: Jared Jacques MD History of Present Illness History of Present Illness 64 year old male who has extensive history of peripheral vascular disease status post [id number] amputation of bilateral lower extremities, prostate cancer, hypertension, hypertension, endograft deployment in the abdominal aorta in 2018 came in with chief complaint of dizziness and vomiting. He does not have a prior diagnosis of atrial fibrillation however on arrival to ER he was found to be in A. fib. His most bothersome symptom was of dizziness, he lives alone and called his daughter to bring to ER. He is not a good historian. Had 3-4 episodes of vomiting yesterday. He did not have any abdominal pain at the time however he did feel some chest discomfort. At time of presentation he was in hypertensive urgency with systolic blood pressure above 210 mmHg. Patient continues to smoke cigarettes. In the ER initially a CTA of the chest was done that showed no evidence of dissection however abdominal aortic graft was noted to be occluded. Today a repeat CTA of the abdomen and pelvis was performed that showed occlusion of abdominal aorta just above abdominal aortic stent extending down into the common iliacs, external iliacs up to proximal SFAs bilaterally. Patient has known occluded axillary femoral, femoral-femoral grafts that were noted on this CT as well. Flow to celiac trunk, SMA and renal arteries was normal. WOODY could not be seen. Collaterals from inferior mammary and hypogastric arteries were seen supplying the deep pelvic arteries. No evidence of ischemic gut. He has not experienced any significant pain in his lower extremity stumps. There is no open wound/ulcer. Warm to touch. Review of Systems General: Reports: 10 or more systems reviewed and unremarkable except in HPI and below Meds/Allergies Home Medications and Allergies Home Medications Medication Instructions Recorded Confirmed Last Taken Type cyclobenzaprine 10 mg PO TID PRN 12/27/19 12/27/19 12/26/19 History finasteride 5 mg PO DAILY 12/27/19 12/27/19 12/26/19 History gabapentin 1,200 mg PO TID 12/27/19 12/27/19 12/26/19 History ibuprofen 200 mg PO Q6H PRN 12/27/19 12/27/19 Unknown History loperamide-simethicone 1 tab PO Q2H PRN 12/27/19 12/27/19 Unknown History losartan 50 mg PO DAILY 12/27/19 12/27/19 12/26/19 History oxybutynin chloride 5 mg PO TID 12/27/19 12/27/19 12/26/19 History ropinirole 1 mg PO DAILY PRN 12/27/19 12/27/19 12/26/19 History ropinirole 2 mg PO BEDTIME 12/27/19 12/27/19 Unknown History terazosin 10 mg PO BEDTIME 12/27/19 12/27/19 Unknown History Allergies Allergy/AdvReac Type Severity Reaction Status Date / Time No Known Allergies Allergy Verified 12/27/19 10:34 Current Medications Current Medications Generic Name Dose Route Start Last Admin Trade Name Freq PRN Reason Stop Dose Admin Gabapentin 1,200 mg 12/27/19 15:00 12/27/19 15:53 Neurontin PO Not Given TID ARABELLA Nitroglycerin/Dextrose 50 mg in 250 mls @ 0 mls/hr 12/27/19 12:45 12/27/19 15:34 Nitroglycerin Drip IV 10 mcg/min .Q0M ARABELLA 3 mls/hr Titration Protocol Per Protocol Sodium Chloride 1,000 mls @ 50 mls/hr 12/27/19 12:45 12/27/19 13:59 Sodium Chloride 0.9% IV 50 mls/hr .Q20H ARABELLA Administration Heparin Sodium/Sodium Chloride 25,000 unit in 500 mls @ 0 mls/hr 12/27/19 13:15 12/27/19 14:03 Heparin Drip IV 14 unit/kg/hr .Q0M ARABELLA 14 mls/hr Administration Protocol Per Protocol Lisinopril 10 mg 12/27/19 09:00 12/27/19 11:12 Prinivil PO Not Given DAILY [facility] Metoprolol Tartrate 12.5 mg 12/27/19 09:00 12/27/19 11:12 Lopressor PO Not Given BID ARABELLA Morphine Sulfate 2 mg 12/27/19 13:06 12/27/19 14:30 Morphine IVP 2 mg Q6H PRN Administration SEVERE PAIN Ondansetron HCl 4 mg 12/27/19 06:43 12/27/19 08:10 Zofran IVP 4 mg Q6H PRN Administration NAUSEA AND VOMITING Oxybutynin Chloride 5 mg 12/27/19 09:00 12/27/19 11:12 Ditropan PO Not Given TID ARABELLA Terazosin HCl 10 mg 12/27/19 09:00 12/27/19 11:14 Hytrin PO Not Given DAILY ARABELLA PFSH Acute PFSH: Medical History (Updated 12/27/19 @ 17:56 by Asa Graves M.D) Amputation leg, bilat Atrial fibrillation Bitten by shark Left lower extremity 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 Coronary artery disease Hypertension Peripheral vascular disease Aorto femoral bypass on left Femorofemoral bypass on the right Surgical History H/O aorto-femoral bypass Stented coronary artery Family History Other CAD (coronary artery disease) Hypertension Social History Smoking and tobacco status: current every day smoker cigarettes [ Other cigarette details: 3 to 4 cigarettes a day ] Substance/Drug Use: current Substance/Drug use type: Marijuana Lives independently: Yes Vitals/I&O/Wt Last Vital Signs Temp 97.9 F 12/27/19 14:00 Pulse 87 12/27/19 14:00 Resp 19 H 12/27/19 14:00 BP 183/95 12/27/19 14:00 Pulse Ox 93 12/27/19 14:00 12/27/19 12/27/19 12/27/19 06:59 14:59 22:59 Intake Total 1.5 / 1.5 Balance 1.5 / 1.5 Weight last 48 hrs Weight 110 lb Physical Exam Narrative: EXAM NARRATIVE: GENERAL: Patient is alert, awake and oriented x3. [] NECK: No jugular vein distension. [] HEENT: No cyanosis. No icterus. No pallor. [] HEART: Irregularly irregular. No murmur, rub or gallop. [] LUNGS: Clear to auscultate bilaterally. [] ABDOMEN: Soft, nontender and nondistended. Positive bowel sounds. No guarding, rebound or tenderness. [] CENTRAL NERVOUS SYSTEM: Grossly nonfocal. [] EXTREMITIES: Lower extremities with bilateral above-knee amputations. Stumps are warm to touch, no wounds or ulcers are noted. No significant tenderness. A&P Assessment and plan (1) Vomiting: Status: Acute Qualifiers: Nausea presence: with nausea Vomiting Intractability: unspecified Vomiting type: unspecified Qualified Code(s): R11.2 - Nausea with vomiting, unspecified (2) New onset atrial fibrillation: Status: Acute (3) Hypertension: Status: Acute (4) Occluded aorta: Status: Acute Patient has severe peripheral artery disease. He continues to smoke. We do not have the outside hospital records at this time detailing the vascular procedure he underwent there and further care. He was not on anticoagulation at time of presentation to hospital. Please obtain records for his procedure and subsequent care.(Procedure performed at [facility] by Dr. Pleitez) His symptoms are vague. Difficult to assess chronicity of aortic occlusion, however given his presentation likely subacute to chronic. No evidence of ischemic limb(history of bilateral AKA but stumps do not have any wound, have normal temperature and no significant pain or tenderness.) No evidence of ischemic bowels on CTA. Renal arteries, celiac trunk and SMA are patent. At this time start anti-coagulation with heparin drip. We will follow him clinically closely. Blood pressure control with IV nitro drip and oral medications. Order lactate Follow renal function Medical management for now. Given his extensive peripheral artery disease, procedural options are limited. If there is any further deterioration clinically, discussion with vascular surgery for transfer. Consult Attestations Time Spent in Patient Care: Greater than 35 minutes Coding Level of Care Code Acute Ad Writer for Chg Fwd Diagnoses Vomiting R11.2 Nausea presence: with nausea Vomiting Intractability: unspecified Vomiting type: unspecified New onset atrial fibrillation I48.91 Hypertension I10 Occluded aorta I70.0
[2019-12-27] MEDS: ondansetron 2 mg/ML SDV 2 mL 8 MG IVP (17:46)
[2019-12-27] MEDS: pantoprazole 40 mg SDV IVP (17:46)
--- NOTE | 2019-12-27 19:01 | PC.NURSE ---
DR IS AWARE THAT PATIENT IS UNABLE TO KEEP FOOD OR MEDS DOWN AT THIS TIME
[2019-12-27 20:11] LABS: Partial Thromboplastin Time 30.2 SECONDS (23.9-36.7)
[2019-12-27] MEDS: heparin 5,000 unit/mL INJ 1 mL IV (20:21)
--- NOTE | 2019-12-27 20:33 | PC.NURSE ---
Patient states that he ate a piece of chocolate from a family member that was on his bedside table and then threw up small amount. Patient states he would like to try to take his PO medications at 10 pm. Patient states the Morphine helps his pain. Dr. Gonzalez contacted and Morphine was changed from q6 hr PRN to q4hr PRN. Will monitor.
[2019-12-27 21:41] LABS: Reflex Lactate Order REFLEX LACTIC ORDERD
[2019-12-27] MEDS: ropinirole 1 mg Tablet 2 MG PO (22:50)
[2019-12-27] MEDS: gabapentin 400 mg Capsule 1200 MG PO (22:50)
[2019-12-27 22:56] LABS: Lactic Acid level (Lactate) 2.3 mmol/L (0.5-2.2)
--- NOTE | 2019-12-27 23:01 | PC.NURSE ---
Patient attempted to take HS medications per patient request. Per report from previous shift, patient had been unable to tolerate PO meds during previous shift due to causing nausea/vomiting. Patient became nauseated and vomited after putting pills in his mouth and before being able to swallow them. Will monitor.
[2019-12-28] VITALS (40 sets, daily range): BP systolic 88–195; BP diastolic 56–103; PULSE 0–109; RESP 10–31; TEMP 37.2–38.1; O2SAT 82–98
--- NOTE | 2019-12-28 01:02 | PC.NURSE ---
Patient is currently resting with eyes closed. Will monitor.
[2019-12-28] MEDS: ipratropium-albuterol 3 mL Neb INHALATION ×4 (02:19→13:24)
[2019-12-28] MEDS: morphine 4 mg/mL SDV 1 mL 2 MG IVP ×3 (02:21→15:49)
[2019-12-28] MEDS: ondansetron 2 mg/ML SDV 2 mL 4 MG IVP (02:21)
--- NOTE | 2019-12-28 02:43 | PC.NURSE ---
RT gave patient breathing treatment per order. Patient coughed up large amount of sputum. Will monitor.
[2019-12-28 03:00] LABS: Basophils % 0.2 %; Eosinophils % 0.2 %; Hematocrit 47.3 % (42.0-52.0); Hemoglobin 15.8 g/dL (11.7-16.6); Lymphocytes # 1.9 10^3/uL (0.8-4.8); Lymphocytes % 9.9 %; Mean Corpuscular HGB Conc 33.4 g/dL (30.0-36.0); Mean Corpuscular Hemoglobin 28.9 pg (28.0-34.0); Mean Corpuscular Volume 86.5 fL (80-94); Mean Platelet Volume 10.2 fL (7.4-10.4); Monocytes # 1.8 10^3/uL (0.2-0.9); Neutrophils # 15.61 10^3/uL (1.8-7.7); Neutrophils % 80.1 %; Nucleated Red Blood Cells % 0 %; Platelet Count 321 10^3/cmm (130-400); Red Blood Count 5.47 10^6/uL (4.1-5.3); Red Cell Distribution Width 13.8 % (12.1-15.1); White Blood Count 19.5 10^3/uL (4.0-10.0)
[2019-12-28 03:07] LABS: Partial Thromboplastin Time 26.6 SECONDS (23.9-36.7)
[2019-12-28 03:10] LABS: Anion Gap 19.7 (5-19); Blood Urea Nitrogen 26 mg/dL (8-23); Calcium 9.2 mg/dL (8.5-10.5); Carbon Dioxide 22 mmol/L (22-29); Chloride 100 mmol/L (98-107); Glomerular Filtration Rate 84.4 mL/min (90-130); Glucose 159 mg/dL (65-115); Osmolality Calculated 286 mOsm/kg (285-295); Potassium 3.7 mmol/L (3.5-5.1); Sodium 138 mmol/L (136-145)
[2019-12-28] MEDS: LORazepam 2 mg/mL INJ 1 mL IVP (03:24)
[2019-12-28 03:33] LABS: Glucose Point of Care 168 mg/dL (70-110)
[2019-12-28] MEDS: heparin drip 25,000 UNIT/500 ML PREMIX 20 UNIT IV (03:43)
[2019-12-28] MEDS: heparin 5,000 unit/mL INJ 1 mL IV ×2 (03:48→10:51)
[2019-12-28] MEDS: HYDROmorphone 1 mg/mL INJ 1 mL 2 MG IVP ×3 (03:49→12:55)
--- NOTE | 2019-12-28 03:56 | PC.NURSE ---
Patient was complaining of severe pain to legs and was very anxious and restless. Dr. Nelson came to room to see patient. Ordered to give 2 mg Ativan and 2 mg Dilaudid IV. Ordered to keep Bipap at bedside in case of need. Lungs are course/crackles. Oxygen saturation is currently 92 percent with respiratory rate of 19 on 3 L NC. Patient appears to be much calmer. Dr. Nelson also notified of patient's PTT remaining below 30 even with continued titration up of Heparin drip and boluses per protocol. IV pump appears to be running WNL, however IV pump and Heparin bag will be switched with new to ensure there is no malfunction. Will follow protocol.
--- NOTE | 2019-12-28 07:47 | PC.NURSE ---
PATIENT VERY RESTLESS ; LEFT AC IV PULLED OUT D/T MOVEMENT ; PRESSURE DRESSING APPLIED ; PATIENT VERBALIZED SEVERE PAIN IN STUMPS AND PAIN VISIBLE ON FACE ; PAIN MEDICINE GIVEN
--- NOTE | 2019-12-28 08:02 | PC.NURSE ---
PATIENT HAS ORAL TEMP OF 100.6 ; NOTIFIED
[2019-12-28] MEDS: sodium chloride 0.9% 1,000 ML 50 ML IV (08:24)
[2019-12-28] MEDS: pantoprazole 40 mg SDV IVP (08:25)
--- NOTE | 2019-12-28 09:20 | PC.NURSE ---
PATIENT RESTING QUIETLY IN BED WATCHING TV ; STATES SHE IS FEELING BETTER TODAY ; VSS
[2019-12-28 09:40] LABS: Partial Thromboplastin Time 43.9 SECONDS (23.9-36.7)
[2019-12-28 09:48] LABS: Lactate (Lactic Acid level) 1.4 mmol/L (0.5-2.2)
--- NOTE | 2019-12-28 10:02 | XR_ITS ---
WS: [id number] EXAM: AP CHEST: PORTABLE UPRIGHT DATE OF EXAM: 12/28/2019, 1259 hours COMPARISON: Chest x-ray from one day prior. HISTORY: Patient is 64 years old with aspiration. Assess for pneumonia.. FINDINGS: The cardiac silhouette is normal in size. The mediastinal contours are similar. Slight calcified p laque in the aorta. The pulmonary vascularity is normal. Left lung is clear. There is patchy infil trate within the right lung base. With the history provided is suggestive for an aspiration pneumonia . There is no effusion or pneumothorax. No acute bony abnormality is seen. XR/XR chest 1V portable [id number] IMPRESSION: New infiltrate within the right lung suggesting aspiration pneumonia with the h istory provided.
[2019-12-28] MEDS: metoprolol tartrate 1 mg/1 mL SDV 5 mL 2.5 MG IV ×2 (10:51→14:50)
[2019-12-28 11:05] LABS: SARS Covid-2 Antigen Negative (Negative)
[2019-12-28] MEDS: piperacillin-tazobactam 3.375 GM in sodium chloride 0.9% (plus) 50 ML IV (11:31)
--- NOTE | 2019-12-28 14:06 | PC.NURSE ---
PATIENT IS BEING TRANSFERRED TO [facility] ; DAUGHTER NOTIFIED ; ALLOWING DAUGHTER TO VISIT OUTSIDE VISITING HOURS ; SECURITY AND HS NOTIFIED
--- NOTE | 2019-12-28 14:08 | PC.NURSE ---
LEFT VM WITH RADIOLOGY TO BURN TESTS AND RESULTS TO DISC
[2019-12-28 14:15] LABS: Creatine Phosphokinase 256 U/L (39-308)
--- NOTE | 2019-12-28 14:34 | P.TS_ITS ---
Transfer Summary Providers Date of Admission: 12/27/19 22:55 Date of Discharge: 12/28/19 Attending Provider at Admission: Radha Nelson MD Attending Provider at Transfer: Sarah Gonzalez MD Primary Care Provider: Jared Jacques MD Anticipated Date of Transfer: Anticipated date of transfer: 12/28/19 Receiving Facility & Provider: Receiving Provider: [Dr. Jimmie Drake] Receiving facility: [[facility]] Diagnoses at Discharge Discharge Diagnosis (1) Occluded aorta: Status: Acute (2) Vomiting: Status: Acute Qualifiers: Vomiting type: unspecified Vomiting Intractability: unspecified Nausea presence: with nausea Qualified Code(s): R11.2 - Nausea with vomiting, unspecified (3) New onset atrial fibrillation: Status: Acute (4) Hypertension: Status: Acute Qualifiers: Hypertension type: essential hypertension Qualified Code(s): I10 - Essential (primary) hypertension (5) Abdominal aorta thrombosis: Status: Acute (6) Peripheral vascular occlusive disease: Status: Acute (7) Aspiration pneumonia due to vomit: Status: Acute Qualifiers: Laterality: right Lung location: lower lobe of lung Qualified Code(s): J69.0 - Pneumonitis due to inhalation of food and vomit (8) Sepsis: Status: Acute Qualifiers: Sepsis type: sepsis due to unspecified organism Sepsis acute organ dysfunction status: without acute organ dysfunction Qualified Code(s): A41.9 - Sepsis, unspecified organism Reason for Visit Reason for Visit: NEW ONSET AFIB Hospital Course Discharge Summary: 64-year-old male past medical history significant for severe vasculopathy, history of severe peripheral vascular disease, B/L [id number] amputations, history of left axillary femoral bypass on the left, history of femorofemoral bypass, history of aortofemoral ipos on the right and prior multiple interventions,known occluded axillary femoral, femoral-femoral grafts , most recent procedure with R MARGARITA in MAR 2019 at [facility] with [address]. Pleitez. Additional history obtained from his daughter. He presented to the ER on 12/26 after complaining of acute onset of dizziness, nausea, vomiting, diffuse pain in his chest radiating into his left arm, new-onset A. fib, all of which are reportedly new for him. When EMS picked him up his blood pressure systolic was noted to be 240, they needed to give him fentanyl and morphine to control his upper extremity and chest pain. And since presenting here, he was noted to be in A. fib, rate is currently controlled at around 70 bpm. Initial blood pressure was 213 systolic. For his chest pain, w/up included troponin series with unremarkable deltas, EKG with A fib, rate controlled, new onset for patient, no reported past history. CTA chest negative for PE however mote made of hypoattenuating differential density of a prominent portion of the lumen of distal thoracic aorta and abdominal aorta with possible demonstration of non vascular flow within the intraluminal stent. This finding is newly developed compared to the prior CT from 03/25/2019. This was followed up with CTA Abd/pelvis which showed occlusion of the abdominal aorta at the top of the endovascular stent which extends into the iliac vessels with occlusion of both superficial femoral arteries at their origin. The inferior mesenteric artery off of the aorta is not seen. No findings of ischemic gut is seen. He has been started on Heparin gtt with these findings once dissection was ruled out. Since starting the drip yesterday patient has not had any meaningful clinical improvement. He reports that B/L stump pain pain, back and buttock pain are worse compared to yesterday. There is no gross skin breakdown or signs of stump gangrene at this time. His nasuea and vomiting have remained intractable, not resolved with multiple doses of Zofran and symptomatic treatment. He is currently not tolerating po intake or po medications. In the interim, his lactate is up [place] 2.7 [place] [address] from 15K upon arrival. He has a fever of 100.6F today, together with cough. Meets sepsis criteria now. CXR shows interval development of RLL infiltrate(not present upon admission on 12/26), most likely to represent aspiration pneumonia from persistent vomiting. Possibility of developing bowel ischemia cannot be completely excluded. CTA yesterday was negative for the same. Zosyn has been started empirically this morning. Covid antigen is negative. CT head yesterday to r/o posterior circulation CVA did not show any acute intracranial abnormalities. MRI is N/A over the weekend. Other issues as below: # new onset A fib, no past history of the same per patient and daughter He was previously on xarelto for PAD, but this was discontinued in Mar 2019 after his last right side above knee amputation. Patient states his understanding is that this was done because he had a wound vac in place until October 2019. He is unaware if there was a plan to resume this after the wound vac was discontinued. Requested old records from [facility]. Most recently patient has been taking ASA 81mg at home Currently on heparin gtt # Hypertensive urgency Currently unable to tolerate po medications, started nitroglycerin infusion. Hold ADELINE/ARB for now since getting multiple contrast studies. Hold ibuprofen. prn morphine for pain. # severe peripheral vascular disease past history includes B/L AKA for ischemic limbs Right one 6 years ago, left one in Mar 2019, history of left axillary femoral bypass, history of femorofemoral bypass, history of aortofemoral ipos on the right and prior multiple i nterventions. # Intractable nausea and vomiting. Concern for bowel ischemia given h/o severe vasculopathy. CTA as above. trend lactate/ Also c/o headache and dizziness, noted nystagmus by admitting physician, CT head without acute findings. MRI N/A. Meclizine ordered but unable to tolerate po meds. # marijuna use for chronic pain # Chronic LE pain : continued ropinirole, reports pain is worse today, also additionally c/o back and buttock pain. DVT ppx: heparin gtt Full code Physical Exam Narrative: EXAM NARRATIVE: GEN: Awake, alert and oriented, moderate amount of distress from pain, does not open eyes for conversation stating it makes him dizzy CVS: S1S2 N RS: scattered RLL crepts Abd: Soft, non tender, non distended, BS+ [employer]ATOR: no focal neuro deficits EXT: B/L AKA, stumps without any gross gangrenous changes TS Data Data Completed and Pending: Completed Studies During Hospitalization Category Date Time Status CT angio abdomen pelvis [id number] Stat Cat Scan 12/27/19 06:[address] angio chest PE protcl [id number] Stat Cat Scan 12/27/19 04:[address] head wo con* [id number] Stat Cat Scan 12/27/19 11:01 Completed XR chest 1V surendra ble [id number] Routine Exams 12/28/19 10:02 Completed XR chest 1V surendra ble [id number] Stat Exams 12/27/19 00:48 Completed Pending at discharge Category Date Time Status Blood Culture Sta t Lab 12/28/19 09:07 Results CKMB Stat Lab 12/28/19 02:40 Results CMP [Comprehensiv e Metabolic Panel] AM LABS Lab 12/29/19 04:00 Ordered Complete Blood Co unt w/Auto AM LABS Lab 12/29/19 04:00 Ordered Creatine Phosphok inase Stat Lab 12/28/19 02:40 Received Lactate (Lactic A vernon level) AM LABS Lab 12/29/19 04:00 Ordered PTT [Partial Thro mboplastin Time] T imed Lab 12/28/19 16:30 Ordered Platelet Count Q2 D Lab 12/29/19 04:00 Ordered Platelet Count Q2 D Lab 12/31/19 04:00 Ordered Labs from last 24 hours 12/28/19 12/28/19 12/28/19 10:05 09:00 09:00 WBC RBC Hgb Hct MCV MCH MCHC RDW Plt Count MPV Neut % (Auto) Lymph % (Auto) [place] % (Auto) Eos % (Auto) Baso % (Auto) Neut # (Auto) Lymph # (Auto) [place] # (Auto) Eos # (Auto) Baso # (Auto) Nucleated RBC % (a uto) Nucleated RBCs # APTT 43.9 H D Sodium Potassium Chloride Carbon Dioxide Anion Gap BUN Creatinine GFR Calculation Glucose POC Glucose Calculated Osmolal ity Lactic Acid (Sepsi s) Lactate 1.4 Calcium Total Bilirubin AST ALT Alkaline Phosphata se Creatine Kinase CK-MB (CK-2) Total Protein Albumin Globulin SARS-CoV-2 Ag (Rap id) Negative 12/28/19 12/28/19 12/28/19 03:25 02:40 02:40 WBC RBC Hgb Hct MCV MCH MCHC RDW Plt Count MPV Neut % (Auto) Lymph % (Auto) [place] % (Auto) Eos % (Auto) Baso % (Auto) Neut # (Auto) Lymph # (Auto) [place] # (Auto) Eos # (Auto) Baso # (Auto) Nucleated RBC % (a uto) Nucleated RBCs # APTT Sodium 138 Potassium 3.7 Chloride 100 Carbon Dioxide 22 Anion Gap 19.7 H BUN 26 H Creatinine 0.9 GFR Calculation 84.4 L Glucose 159 H POC Glucose 168 Calculated Osmolal ity 286 Lactic Acid (Sepsi s) Lactate Calcium 9.2 Total Bilirubin AST ALT Alkaline Phosphata se Creatine Kinase 256 CK-MB (CK-2) Pending Total Protein Albumin Globulin SARS-CoV-2 Ag (Rap id) 12/28/19 12/28/1912/26/20 02:40 02:40 22:30 WBC 19.5 H RBC 5.47 H Hgb 15.8 Hct 47.3 MCV 86.5 MCH 28.9 MCHC 33.4 RDW 13.8 Plt Count 321 MPV 10.2 Neut % (Auto) 80.1 Lymph % (Auto) 9.9 [place] % (Auto) 9.0 Eos % (Auto) 0.2 Baso % (Auto) 0.2 Neut # (Auto) 15.61 H Lymph # (Auto) 1.9 [place] # (Auto) 1.8 H Eos # (Auto) 0.0 Baso # (Auto) 0.0 Nucleated RBC % (a uto) 0 Nucleated RBCs # 0.0 APTT 26.6 Sodium Potassium Chloride Carbon Dioxide Anion Gap BUN Creatinine GFR Calculation Glucose POC Glucose Calculated Osmolal ity Lactic Acid (Sepsi s) 2.3 H Lactate Calcium Total Bilirubin AST ALT Alkaline Phosphata se Creatine Kinase CK-MB (CK-2) Total Protein Albumin Globulin SARS-CoV-2 Ag (Rap id) 12/27/19 12/27/19 12/27/19 19:49 16:10 16:10 WBC RBC Hgb Hct MCV MCH MCHC RDW Plt Count MPV Neut % (Auto) Lymph % (Auto) [place] % (Auto) Eos % (Auto) Baso % (Auto) Neut # (Auto) Lymph # (Auto) [place] # (Auto) Eos # (Auto) Baso # (Auto) Nucleated RBC % (a uto) Nucleated RBCs # APTT 30.2 Sodium 135 L Potassium 3.7 Chloride 101 Carbon Dioxide 20 L Anion Gap 17.7 BUN 18 Creatinine 0.7 GFR Calculation 112.8 Glucose 151 H POC Glucose Calculated Osmolal ity 279 L Lactic Acid (Sepsi s) Lactate 2.7 H Calcium 9.5 Total Bilirubin 0.3 AST 19 ALT 28 Alkaline Phosphata se 113 Creatine Kinase CK-MB (CK-2) Total Protein 8.4 Albumin 4.3 Globulin 4.1 SARS-CoV-2 Ag (Rap id) 12/27/19 12/27/19 12/27/19 15:32 15:32 14:55 WBC RBC Hgb Hct MCV MCH MCHC RDW Plt Count MPV Neut % (Auto) Lymph % (Auto) [place] % (Auto) Eos % (Auto) Baso % (Auto) Neut # (Auto) Lymph # (Auto) [place] # (Auto) Eos # (Auto) Baso # (Auto) Nucleated RBC % (a uto) Nucleated RBCs # APTT Sodium Cancelled Potassium Cancelled Chloride Cancelled Carbon Dioxide Cancelled Anion Gap Cancelled BUN Cancelled Creatinine Cancelled GFR Calculation Cancelled Glucose Cancelled POC Glucose Calculated Osmolal ity Cancelled Lactic Acid (Sepsi s) Lactate Cancelled Cancelled Calcium Cancelled Total Bilirubin Cancelled AST Cancelled ALT Cancelled Alkaline Phosphata se Cancelled Creatine Kinase CK-MB (CK-2) Total Protein Cancelled Albumin Cancelled Globulin Cancelled SARS-CoV-2 Ag (Rap id) 12/27/19 14:55 WBC RBC Hgb Hct MCV MCH MCHC RDW Plt Count MPV Neut % (Auto) Lymph % (Auto) [place] % (Auto) Eos % (Auto) Baso % (Auto) Neut # (Auto) Lymph # (Auto) [place] # (Auto) Eos # (Auto) Baso # (Auto) Nucleated RBC % (a uto) Nucleated RBCs # APTT Sodium Cancelled Potassium Cancelled Chloride Cancelled Carbon Dioxide Cancelled Anion Gap Cancelled BUN Cancelled Creatinine Cancelled GFR Calculation Cancelled Glucose Cancelled POC Glucose Calculated Osmolal ity Cancelled Lactic Acid (Sepsi s) Lactate Calcium Cancelled Total Bilirubin Cancelled AST Cancelled ALT Cancelled Alkaline Phosphata se Cancelled Creatine Kinase CK-MB (CK-2) Total Protein Cancelled Albumin Cancelled Globulin Cancelled SARS-CoV-2 Ag (Rap id) Imaging^: CTA Chest: Radiologist's impression: CCESSION #: [id number] CT/CT angio chest PE protcl [id number] IMPRESSION: 1. Prominent abnormal eccentric hypoattenuating differential density of a prominent portion of the lumen of distal thoracic aorta and abdominal aorta with possible demonstration of non vascular flow within the intraluminal stent. This finding is newly developed compared to the prior CT a 03/25/2019. There is marked limited assessment of the aorta due to opacification of the pulmonary arteries for pulmonary embolus protocol. The underlying condition could include intra aortic thrombosis or thromboembolic involvement of the distal thoracic and abdominal aorta with probable complete occlusion of the abdominal aortic stent. Other underlying condition could include vascular dissection and delineation and detailed assessment is limited. CTA of thoracic and abdominal aorta is recommended. 2. No definite visualization of pulmonary embolus. 3. Areas of pleural parenchymal scarring with areas of pleural nodular configuration in the right posterolateral mid lung probably scarring rather than pleural based nodules. 4. Granulomatous calcifications within the mediastinum and lungs. 5. Likely thrombosis of left axillary vascular graft within the left chest wall was reported to have thrombosed appearance on prior CTA 03/25/2019. CTA abdomen/pelvis: Radiologist's impression: EXAM: CTA OF THE THORACIC AND ABDOMINAL AORTA DATE OF EXAMINATION: 12/27/2019, 1210 hours COMPARISON: CT pulmonary angiogram from 0526 hours on the same date. Prior CTA with runoff from 03/25/2018. HISTORY: 64 years old with a history of prostate cancer. Persistent nausea and vomiting. Bilateral [id number] amputation patient. Abnormal CT pulmonary angiogram showing thrombus within the abdominal aorta. Assess for extent of thrombus and possible dissection. TECHNIQUE: Transaxial computed tomography images obtained through the majority of the chest, abdomen and pelvis utilizing 95 mL of Visipaque IV contrast with images acquired in the portal and delayed phase. Images viewed in multiple windows with reconstructions. DLP: 1236.[address] scans at use at least one of these dose optimization techniques: automated exposure control; mA and/or kV adjustment per patient size (includes targeted exams where dose is matched to clinical indication); or iterative reconstruction. FINDINGS: The examination begins above the level of the aortic arch. The innominate artery, left common carotid artery, subclavian artery are normal in appearance at their origins. The left vertebral artery on the left arises from the aortic arch. The ascending aorta is normal in caliber and opacifies normally. There are findings of a tricuspid aortic valve. No aneurysmal dilatation or dissection of the ascending aorta seen. The descending thoracic aorta shows a small amount of peripheral wall thickening and calcified plaque. Just above the level of the diaphragm there is slight increase in amount of wall plaque from the 8:00-1:00 position. As the examination extends inferiorly the amount of plaque burden progresses to involve around two thirds of the main aortic vascular lumen. This is new since 03/25/2019 examination and suggest thrombus has developed at some point in time in this region. Multiple vertebral arteries are opacified off of the aorta. Celiac trunk and branches are normally opacified. Superior mesenteric artery origin is normal in appearance and opacification without evidence of occlusion. There is some degree of plaque within the superior mesenteric artery noted but was also seen on the March 2019 exam. Both renal arteries are opacified and are of normal caliber. There is an acute occlusion of the aortic lumen at this level. Since the March 2019 examination an endovascular graft has been placed with a double barrel graft extending into both limbs of the iliac arteries. The [place] abdominal aorta is occluded and extends inferiorly through the common iliac arteries, external iliac arteries and into the groin regions. Proximal superficial femoral arteries are also occluded. Stenting from the right common carotid artery into the distal external iliac artery on the right is noted. Its is also occluded. There are findings of a femorofemoral jump graft noted on this examination which also shows no evidence for opacification. On the left-hand side it appears to end blindly in the subcutaneous fat. On the right appears to be anastomosis to a small caliber arterial vessel. The right and left proximal superficial femoral arteries are also occluded. Inferior mammary arteries extending down into the hypogastric arteries which appears to show collateral perfusion into the deep pelvis vessels. I presume the inferior mesenteric artery is also being perfused via collaterals from the groin as well as off the superior mesenteric artery and vertebral artery collaterals. There are no findings of ischemic gut demonstrated. Left-sided axillary femoral jump graft is in place but is occluded. Was also noted to be occluded in the March 2019 exam. Curiel decompresses the bladder. Prostate is enlarged. Chronic lung changes are identified. There is some minimal patchy infiltrate in the outer aspect of the right mid chest region not seen at the examination from 0528 hours same date therefore most consistent with atelectasis. Some minimal linear atelectasis in the left lower lobe. No mediastinal mass or adenopathy is seen. Heart size is normal. Liver attenuation is normal. Multiple calcified granulomatous changes. Gallbladder is full of vicariously excreted contrast. No biliary dilatation is seen. Faint opacification of the pulmonary vein is seen. Spleen, pancreas, adrenals are normal in appearance. Both kidneys enhance without evidence of solid mass lesion. Small low-density lesions are demonstrated in both kidneys most consistent with cysts. Both kidneys excrete without obstructive uropathy. Stomach is full of fluid otherwise unremarkable. Small bowel is normal in caliber. There are no findings of pneumatosis demonstrated. Colon is moderately full of stool otherwise unremarkable. No colonic distention is seen. No bowel obstruction, free air, free fluid or inflammatory process is noted. Scattered changes of arthritis are seen in the spine. Underlying spinal canal stenosis felt to be present L4-5 level. No umbilical or groin hernia identified. Changes of arthritis fairly prominent right hip joint. CT/CT angio abdomen pelvis [id number] IMPRESSION: Findings of interval placement of an endovascular stent from the level of the below the renal arteries into both common carotid arteries and extending on the right to the level of the common femoral artery. There is occlusion of the ab dominal aorta at the top of the stent which extends into the iliac vessels with occlusion of both superficial femoral arteries at their origin. Left axillary femoral jump graft is occluded but was also occluded on the March 2019 exam. Plaque within the superior mesenteric artery but was also present in March 2019. Normal caliber to the celiac trunk and its major branches. Normal perfusion to the superior mesenteric artery and the mesenteric arcade. The inferior mesenteric artery off of the aorta is not seen. No findings of ischemic gut is seen. I presume the bowel distribution for the inferior mesenteric artery is being perfused via collaterals. Vicarious excretion of contrast within the gallbladder lumen. No findings of obstructive uropathy. No findings of ischemic or gut. No bowel obstruction seen. CT Head: Radiologist's impression: HISTORY: 64 years old with dizziness and nystagmus. Nausea and vomiting. History of prostate cancer. TECHNIQUE: Thin slice imaging obtained through the brain. Viewed in brain, subdural and bone window with reconstructions. DLP: 902.[address] scans at use at least one of these dose optimization techniques: automated exposure control; mA and/or kV adjustment per patient size (includes targeted exams where dose is matched to clinical indication); or iterative reconstruction. FINDINGS: There are minimal changes of atrophy. Gee-white differentiation is normal. There are slight changes of decreased attenuation within the white matter felt to represent sequelae from chronic small vessel white matter microangiopathic change. There is slight motion artifact. Contrast remains within the arterial and venous structures related to a recent CT examination with IV contrast from earlier in the day. This limits evaluation for subtle hemorrhage. As presented no findings of gross hemorrhage identified. No hydrocephalus, mass, mass effect or abnormal extra-axial fluid collection is seen. No acute skull abnormality is demonstrated. Extracalvarial soft tissues are unremarkable. The paranasal sinuses are well pneumatized as visualized. CT/CT head wo con* [id number] IMPRESSION: Residual contrast seen within the vascular structures from a CT examination with IV contrast from earlier on the same date. Small amount of motion artifact. As presented no acute intracranial process is identified. CXR: Radiologist's impression: 12/28/2019, 1259 hours XR/XR chest 1V portable [id number] IMPRESSION: New infiltrate within the right lung suggesting aspiration pneumonia with the history provided. 12/27/2019, 0129 hours FINDINGS: The cardiac silhouette is normal in size. The mediastinal contours are similar. Calcified plaque in the aorta. This suggests hypertension.. The pulmonary vascularity is normal. The lungs are clear of infiltrate. There is no effusion or pneumothorax. No acute bony abnormality is seen. XR/XR chest 1V portable [id number] IMPRESSION: No acute pulmonary disease. Vitals: Last Vital Signs Temp 99.4 F 12/28/19 11:00 Pulse 107 H 12/28/19 13:30 Resp 20 H 12/28/19 13:25 BP 149/84 12/28/19 11:00 Pulse Ox 92 12/28/19 13:25 TS Medications Medications Home Medications cyclobenzaprine 10 mg PO TID PRN 12/27/19 [History Confirmed 12/27/19] finasteride 5 mg PO DAILY 12/27/19 [History Confirmed 12/27/19] gabapentin 1,200 mg PO TID 12/27/19 [History Confirmed 12/27/19] ibuprofen 200 mg PO Q6H PRN 12/27/19 [History Confirmed 12/27/19] loperamide-simethicone 1 tab PO Q2H PRN 12/27/19 [History Confirmed 12/27/19] losartan 50 mg PO DAILY 12/27/19 [History Confirmed 12/27/19] oxybutynin chloride 5 mg PO TID 12/27/19 [History Confirmed 12/27/19] ropinirole 1 mg PO DAILY PRN 12/27/19 [History Confirmed 12/27/19] ropinirole 2 mg PO BEDTIME 12/27/19 [History Confirmed 12/27/19] terazosin 10 mg PO BEDTIME 12/27/19 [History Confirmed 12/27/19] Active Medications Albuterol/Ipratropium (Duoneb) 3 ml INHALATION Q4H.RESPIRATORY PRN PRN Reason: SHORTNESS OF BREATH Last Admin: 12/28/19 13:24 Dose: 3 ml Documented by: Cilostazol (Pletal) 50 mg PO BID [facility] Last Admin: 12/28/19 09:18 Dose: Not Given Documented by: Finasteride (Proscar) 5 mg PO DAILY [facility] Last Admin: 12/28/19 09:18 Dose: Not Given Documented by: Gabapentin (Neurontin) 1,200 mg PO TID [facility] Last Admin: 12/28/19 09:19 Dose: Not Given Documented by: Heparin Sodium (Beef Lung) (Heparin) 0 unit IV PRN PRN; Protocol PRN Reason: Heparin weight-base protocol Last Admin: 12/28/19 10:51 Dose: 2,000 unit Documented by: Hydromorphone HCl (Dilaudid Inj) 2 mg IVP Q4H PRN PRN Reason: PAIN Last Admin: 12/28/19 12:55 Dose: 2 mg Documented by: Nitroglycerin/Dextrose (Nitroglycerin Drip) 50 mg in 250 mls @ 0 mls/hr IV .Q0M [facility]; Protocol Last Titration: 12/28/19 13:30 Dose: 10 mcg/min, 3 mls/hr Documented by: Sodium Chloride (Sodium Chloride 0.9%) 1,000 mls @ 50 mls/hr IV .Q20H [facility] Last Admin: 12/28/19 08:24 Dose: 50 mls/hr Documented by: Heparin Sodium/Sodium Chloride (Heparin Drip) 25,000 unit in 500 mls @ 0 mls/hr IV .Q0M [facility]; Protocol Last Titration: 12/28/19 10:30 Dose: 22 unit/kg/hr, 22 mls/hr Documented by: Piperacillin Sod/Tazobactam (Sod 3.375 gm/ Sodium Chloride) 50 mls @ 12.5 mls/hr IV Q8H [facility]; Protocol Last Admin: 12/28/19 11:31 Dose: 12.5 mls/hr Documented by: Lisinopril (Prinivil) 10 mg PO DAILY [facility] Last Admin: 12/27/19 11:12 Dose: Not Given Documented by: Meclizine HCl (Antivert) 25 mg PO TID PRN PRN Reason: DIZZINESS Metoprolol Tartrate (Metoprolol Tartrate) 2.5 mg IV Q4H [facility] Last Admin: 12/28/19 10:51 Dose: 2.5 mg Documented by: Morphine Sulfate (Morphine) 2 mg IVP Q4H PRN PRN Reason: SEVERE PAIN Last Admin: 12/28/19 10:52 Dose: 2 mg Documented by: Naloxone HCl (Narcan) 0.1 mg IVP Q2M PRN PRN Reason: RESPIRATORY RATE < 8/MIN Ondansetron HCl (Zofran) 4 mg IVP Q6H PRN PRN Reason: NAUSEA AND VOMITING Last Admin: 12/28/19 02:21 Dose: 4 mg Documented by: Oxybutynin Chloride (Ditropan) 5 mg PO TID [facility] Last Admin: 12/27/19 11:12 Dose: Not Given Documented by: Pantoprazole Sodium (Protonix) 40 mg IVP DAILY [facility] Last Admin: 12/28/19 08:25 Dose: 40 mg Documented by: Ropinirole HCl (Requip) 1 mg PO DAILY PRN PRN Reason: Restless Leg(S) Ropinirole HCl (Requip) 2 mg PO BEDTIME [facility] Last Admin: 12/27/19 22:50 Dose: 2 mg Documented by: Terazosin HCl (Hytrin) 10 mg PO DAILY [facility] Last Admin: 12/28/19 09:20 Dose: Not Given Documented by: Discharge Plan Discharge Patient Disposition: Xfer Other Condition: Stable Prescriptions: No Action losartan 50 mg Tablet 50 mg PO DAILY RF: 0 cyclobenzaprine 10 mg Tablet 10 mg PO TID PRN (Reason: Muscle Spasm) RF: 0 gabapentin 600 mg Tablet 1,200 mg PO TID RF: 0 ropinirole 1 mg Tablet 1 mg PO DAILY PRN (Reason: Restless Leg(S)) RF: 0 ropinirole 1 mg Tablet 2 mg PO BEDTIME RF: 0 ibuprofen 200 mg Tablet 200 mg PO Q6H PRN (Reason: Mild Pain (Scale Score 1-4)) RF: 0 loperamide-simethicone 2-125 mg Tablet 1 tab PO Q2H PRN (Reason: Diarrhea) RF: 0 oxybutynin chloride 5 mg Tablet 5 mg PO TID RF: 0 terazosin 10 mg Capsule 10 mg PO BEDTIME RF: 0 finasteride 5 mg Tablet 5 mg PO DAILY RF: 0 Discharge Orders: Discharge Order (Routine); Ordered 12/28/19 Ordered By: Sarah Gonzalez Referrals: [facility] [Outside] Jared Jacques MD [Primary Care Provider] - Binh Jacques [Family Provider] - Discharge Diet: Advance as tolerated and Cardiac Transfer Attestations Time Spent in Transfer Care*: greater than 30 min Quality Metrics Clinical Quality Measures: During this hospital stay, did patient experience: None Coding Level of Care Code Acute [employer] Operator for Chg Fwd Diagnoses 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
[2019-12-28 14:54] LABS: CKMB 5.4 ng/mL (0-10.4)
--- NOTE | 2019-12-28 15:33 | PC.NURSE ---
REPORT CALLED TO ESTELA RIOS RN ; ALL QUESTIONS ANSWERED ; HS NOTIFIED AND TRANSPORT ARRANGED
--- NOTE | 2019-12-28 16:36 | PC.NURSE ---
PATIENT CARE TRANSFERRED TO [facility] ; PATIENT WAS GIVEN PAIN MEDICATIONS PRIOR TO TRANSPORT ; VSS ; HEPARIN NTG AND NS GTT GIVEN TO CLOCK MAKER RUNNING AT CURRENT RATES ; DAUGHTER AT PATIENT SIDE PRIOR TO TRANSPORT ; RECEIVING RN NOTIFIED OF PATIENT TRANSPORT
--- NOTE | 2019-12-29 16:53 | PC.RESP ---
SMOKING CESSATION INFORMATION SENT TO PATIENT.
== END 2019-12-28 16:55 | disposition short-term general hospital (02) | DRG 871 ==
LOC: ER 05:22 → CSU 05:39
PROVIDERS: Admitting Provider Internal Medicine; Emergency Provider Emergency Medicine; Family Provider Family Medicine; Visit Provider Student in an Organized Health Care Education/Training Program
DX: A41.9 Sepsis, unspecified organism (principal); J69.0 Pneumonitis due to inhalation of food and vomit; I16.0 Hypertensive urgency; I48.91 Unspecified atrial fibrillation; I73.9 Peripheral vascular disease, unspecified; Z89.612 Acquired absence of left leg above knee; Z89.611 Acquired absence of right leg above knee; C61 Malignant neoplasm of prostate; I10 Essential (primary) hypertension; F17.210 Nicotine dependence, cigarettes, uncomplicated; I25.10 Atherosclerotic heart disease of native coronary artery without angina pectoris; Z95.5 Presence of coronary angioplasty implant and graft; F15.10 Other stimulant abuse, uncomplicated; H81.10 Benign paroxysmal vertigo, unspecified ear; R33.9 Retention of urine, unspecified; G89.29 Other chronic pain; I70.0 Atherosclerosis of aorta; I77.9 Disorder of arteries and arterioles, unspecified
CPT/HCPCS: 12345; 36415; 36416; 70450; 71045; 71275; 74174; 80048; 80053; 80306; 81001; 82550; 82553; 82962; 83605; 83880; 84443; 84484; 85025; 85610; 85730; 87040; 87426; 93005; 94640; 96375; 97140; 97161; 99284; C9113; G0378; J0360; J1170; J1644; J2060; J2270; J2405; J2543; J3490; J7030; J8597; Q9967